=== PATIENT | male | born 1990 | race Caucasian/White ===

== ENCOUNTER 2016-07-26 14:56 | Emergency (ER) | payer OTHER ==
[2016-07-26 15:25] VITALS: BMI 29.6
[2016-07-26 15:30] VITALS: BP 125/64; PULSE 69; RESP 16; TEMP 99.2; O2SAT 97
--- NOTE | 2016-07-26 16:24 | ED PDOC ---
Arrival/HPI - General Chief Complaint: Male Genitourinary Time Seen by Provider: 07/26/16 15:07 Historian: Patient - History of Present Illness Narrative History of Present Illness (Text): 07/26/16 16:05 This 26-year-old male presents to the emergency department complaining of dysuria 2 weeks. Patient stated he has been seen some clear penile discharge last 3 days. They stated girlfriend has similar symptoms. Patient denies testicular pain, Fever, Pelvic pain, Rectal pain, Hematuria, or recent travel. Time/Duration: Other (2 weeks) Quality: Aching Context: Home Past Medical History - Provider Review Nursing Documentation Reviewed: Yes - Psychiatric Hx Psychophysiologic Disorder: No Hx Substance Use: No - Anesthesia Hx Anesthesia: No Family/Social History - Physician Review Nursing Documentation Reviewed: Yes Family/Social History: No Known Family HX Smoking Status: Never Smoked Hx Alcohol Use: No Hx Substance Use: No Allergies/Home Meds Allergies/Adverse Reactions: Allergies amoxicillin Allergy (Verified 07/26/16 15:26) RASH Home Medications: Home Meds Medication Instructions Recorded Confirmed No Known Home Med 07/26/16 07/26/16 Review of Systems - Review of Systems Constitutional: Normal. absent: Fatigue, Weight Change, Fevers Eyes: Normal ENT: Normal Respiratory: Normal Cardiovascular: Normal Gastrointestinal: Normal Genitourinary Male: Dysuria. absent: Frequency, Hematuria Musculoskeletal: Normal Skin: Normal Neurological: Normal Endocrine: Normal Hemo/Lymphatic: Normal Psychiatric: Normal Physical Exam Vital Signs Temp Pulse Resp BP Pulse Ox 07/26/16 15:28 99.2 F 69 16 125/64 97 Temperature: Afebrile Blood Pressure: Normal Pulse: Regular Respiratory Rate: Normal Appearance: Positive for: Well-Appearing, Non-Toxic, Comfortable Pain Distress: None Mental Status: Positive for: Alert and Oriented X 3 - Systems Exam Head: Present: Atraumatic, Normocephalic Pupils: Present: PERRL Extroacular Muscles: Present: EOMI Conjunctiva: Present: Normal Mouth: Present: Moist Mucous Membranes Neck: Present: Normal Range of Motion Respiratory/Chest: Present: Clear to Auscultation, Good Air Exchange. No: Respiratory Distress, Accessory Muscle Use, Wheezes, Retracting, Rhonchi Cardiovascular: Present: Regular Rate and Rhythm, Normal S1, S2. No: Murmurs Abdomen: No: Tenderness Genitourinary Male: Present: Normal External Genitalia. No: Circumcised Penis, Lesions, Penile Discharge, Testicle Tenderness, Penile Swelling, Masses, Erythema, Hernias, Testicle Swelling Back: Present: Normal Inspection. No: CVA Tenderness Upper Extremity: Present: Normal Inspection, Normal ROM, NORMAL PULSES, Neurovascularly Intact, Capillary Refill < 2s Lower Extremity: Present: Normal Inspection, NORMAL PULSES, Neurovascularly Intact, Capillary Refill < 2 s Neurological: Present: GCS=15, CN II-XII Intact, Speech Normal, Motor Func Grossly Intact, Normal Sensory Function, Normal Cerebellar Funct, Gait Normal, Memory Normal Skin: Present: Warm, Dry, Normal Color. No: Rashes Psychiatric: Present: Alert, Oriented x 3 Medical Decision Making ED Course and Treatment: 07/26/16 16:51 Patient presents today complaining of dysuria. Patient is concerned about STD exposure. Patient admits allergies to amoxicillin. Patient was treated with prophylactic before meals Azithromycin 2 g tabs, since he is allergic to amoxicillin. Patient was recommended to follow with primary care physician in 3 days, and to review STD test result with his primary care physician. Re-evaluation Time: 16:53 Reassessment Condition: Re-examined, Improved - Lab Interpretations Microbiology Results: Microbiology Results 07/26/16 16:55 Urine,Clean Catch Urine Culture - Final No Growth (<1,000 CFU/ML) Lab Results: Lab Results 07/26/16 16:30: Urine Color Light yellow, Urine Appearance Clear, Urine pH 8.0, Ur Specific [place] 1.010, Urine Protein Trace H, Urine Glucose (UA) Negative, Urine Ketones Negative, Urine Blood Negative, Urine Nitrate Negative, Urine Bilirubin Negative, Urine Urobilinogen 0.2, Ur Leukocyte Esterase Small H, Urine RBC Negative, Urine WBC 2 - 5, Ur Epithelial Cells 0 - 2, Urine Bacteria Few - Medication Orders Current Medication Orders: Discontinued Medications Azithromycin (Zithromax) 2,000 mg PO STAT STA PRN Reason: Protocol Stop: 07/26/16 16:29 Last Admin: 07/26/16 16:36 Dose: 2,000 mg Disposition/Present on Arrival - Present on Arrival Any Indicators Present on Arrival: No History of DVT/PE: No History of Uncontrolled Diabetes: No Urinary Catheter: No History of Decub. Ulcer: No History Surgical Site Infection Following: None - Disposition Have Diagnosis and Disposition been Completed?: Yes Diagnosis: Urethritis Disposition: HOME/ ROUTINE Disposition Time: 16:55 Patient Plan: Discharge Condition: GOOD Discharge Instructions (ExitCare): Nonspecific Urethritis in Men (ED) Additional Instructions: Call private in 1-2 days days for follow-up visit. STD tests will be available in 3 days, so which her private doctor. Always use protection during sexual intercourse. Do no have any sexual intercourse until you know of the report from your test. Return to emergency if symptoms worsen Referrals: PCP,NO [Primary Care Provider] - Follow up with primary [facility] [Outside] - Follow up with primary [facility] [Outside] - Follow up with primary Forms: WORK NOTE
[2016-07-26 16:49] LABS: URINE BILIRUBIN NEGATIVE (NEGATIVE); URINE BLOOD NEGATIVE (NEGATIVE); URINE GLUCOSE (UA) NEGATIVE (NEGATIVE); URINE KETONE NEGATIVE (NEGATIVE); URINE LEUKOCYTE ESTERASE SMALL Leu/uL (NEGATIVE); URINE PROTEIN TRACE mg/dL (<30 mg/dL); URINE UROBILINOGEN 0.2 E.U./dL (<1 E.U./dL)
[2016-07-26 16:59] LABS: URINE APPEARANCE CLEAR (CLEAR); URINE COLOR LIGHT YELLOW (YELLOW)
[2016-07-26 17:18] LABS: URINE BACTERIA FEW (NEG); URINE EPITHELIAL CELLS 0 - 2 /hpf (0-5); URINE RBC NEGATIVE /hpf (0-2)
== END 2016-07-26 17:02 | disposition home or self-care (01) ==
LOC: ED 14:56
DX: N34.2 Other urethritis (principal)